=== PATIENT | female | born 1945 | race Caucasian/White ===

== ENCOUNTER → 2016-11-18 | Outpatient (CLI) | payer OTHER ==
[2016-11-18 17:28] LABS: ALT/SGPT 29 U/L (12-78); BLOOD UREA NITROGEN 17 mg/dl (7-18); BUN/CREATININE RATIO 19.5 (10-20); CALCIUM 8.3 mg/dl (8.5-10.1); CARBON DIOXIDE 26 mmol/L (21-32); CHLORIDE 98 mmol/L (98-107); CHOLESTEROL 93 mg/dl (0-200); CREATININE 0.85 mg/dl (0.60-1.20); GLUCOSE 89 mg/dl (70-99); POTASSIUM 3.5 mmol/L (3.5-5.1); SODIUM 133 mmol/L (136-145); TRIGLYCERIDES 91 mg/dl (0-150); VERY LOW DENSITY LIPOPROT CALC 18 mg/dl
[2016-11-18 17:34] LABS: BASO % 0.3 %; BASO ABS # 0.02 K/uL (0-0.2); COMPLETE YES; EOS % 0.4 %; HEMATOCRIT 37.9 % (37-47); IG% 0.3 %; LYMPH % 9.5 %; LYMPH ABS # 0.65 K/uL (1.2-3.4); MEAN CELL VOLUME 79.1 fL (80-100); MEAN CORPUSCULAR HEMOGLOBIN 27.6 pg (25-34); MEAN CORPUSCULAR HGB CONC 34.8 g/dl (32-36); MEAN PLATELET VOLUME 10.6 fL (7.4-10.4); MONO % 14.9 %; NEUT % 74.6 %; PLATELET COUNT 231 K/uL (130-400); RED BLOOD COUNT 4.79 M/uL (4.2-5.4); WHITE BLOOD COUNT 6.84 K/uL (4.8-10.8)
[2016-11-18 17:38] LABS: ALB/GLOB RATIO 0.8 (0.9-2); ALKALINE PHOSPHATASE 76 U/L (45-117); AST/SGOT 26 U/L (15-37); CHOLESTEROL/HDL RATIO 1.9; HDL CHOLESTEROL 48 mg/dl; LDL CHOLESTEROL CALCULATED 27 mg/dl; THYROID STIMULATING HORMONE 0.684 uIu/ml (0.300-4.500)
[2016-11-19 06:30] LABS: ESTIMATED AVERAGE GLUCOSE 126 mg/dl; HA1C FLAG Normal (Normal)
== END | disposition home or self-care (01) ==
LOC: C.LABBFT 16:39
PROVIDERS: ATTEND Internal Medicine
DX: E78.00 Pure hypercholesterolemia, unspecified (principal); I35.0 Nonrheumatic aortic (valve) stenosis; R73.01 Impaired fasting glucose; E55.9 Vitamin D deficiency, unspecified

== ENCOUNTER → 2016-11-20 | Outpatient (CLI) | payer OTHER ==
[2016-11-20 17:52] LABS: URINE APPEARANCE CLEAR (CLEAR); URINE BILIRUBIN NEG (NEG); URINE COLOR YELLOW; URINE NITRITE NEG (NEG); URINE PH 7.5 (4.5-7.5); URINE SPECIFIC GRAVITY 1.005 (1.000-1.030); UROBILINOGEN NEG (NEG); ZZUR CULT IF INDIC CLEAN CATCH NO
[2016-11-20 17:54] LABS: MANUAL MICROSCOPIC REQUIRED? NO; REVIEW REQ? NO
== END | disposition home or self-care (01) ==
LOC: C.LABSPEC 17:24
PROVIDERS: ATTEND Internal Medicine
DX: I35.0 Nonrheumatic aortic (valve) stenosis (principal); E78.00 Pure hypercholesterolemia, unspecified; R73.01 Impaired fasting glucose; E55.9 Vitamin D deficiency, unspecified

== ENCOUNTER → 2016-11-28 | Outpatient (CLI) | payer OTHER ==
--- NOTE | 2016-11-28 10:20 | DIAGNOSTIC IMAGING REPORT ---
CHEST 2 VIEWS ROUTINE CLINICAL HISTORY: J45.901 Asthma [id number] COMPARISON STUDY: No previous studies for comparison. FINDINGS: The bones soft tissues and hemidiaphragms are normal. The cardiomediastinal silhouette is normal. The lungs are clear. The pulmonary vasculature is normal. IMPRESSION: Negative chest. Electronically signed by: Narendra Chaudhari M.D. 11/28/2016 10:19 AM Dictated Date/Time: 11/28/2016 10:19 AM
== END | disposition home or self-care (01) ==
LOC: C.RAD1850 09:59
PROVIDERS: ATTEND Internal Medicine Pulmonary Disease
DX: J45.901 Unspecified asthma with (acute) exacerbation (principal)

== ENCOUNTER → 2016-12-25 | Outpatient (CLI) | payer OTHER ==
[2016-12-25 17:32] LABS: BLOOD UREA NITROGEN 14 mg/dl (7-18); BUN/CREATININE RATIO 16.4 (10-20); CALCIUM 9.3 mg/dl (8.5-10.1); CARBON DIOXIDE 30 mmol/L (21-32); CHLORIDE 108 mmol/L (98-107); CREATININE 0.85 mg/dl (0.60-1.20); GLUCOSE 96 mg/dl (70-99); POTASSIUM 3.6 mmol/L (3.5-5.1); SODIUM 142 mmol/L (136-145)
[2016-12-25 18:07] LABS: LYME DISEASE AB IGG NEG (NEG)
[2016-12-25 18:08] LABS: LYME DISEASE AB IGM NEG (NEG)
== END | disposition home or self-care (01) ==
LOC: C.LABBFT 12:28
PROVIDERS: ATTEND Physician Assistant Medical
DX: E87.1 Hypo-osmolality and hyponatremia (principal); R53.83 Other fatigue

== ENCOUNTER → 2017-02-27 | Outpatient (CLI) | payer OTHER ==
--- NOTE | 2017-02-28 07:07 | PAP/PSG TECHNICIAN REPORT ---
[facility] X Ray Service Technician Polysomnogram Report Study name: None Report date: 02/28/2017 Study date: 02/27/2017 Referring Physician: LEEANNE CANTRELL M.D. Name: DEEPAK RODRIGUES Interpreting Physician: Josue Bonds M.D. Date of : 1945 X Ray Service Technician: Sofia Calhoun, PSGT. Sex: Female Age: 71 StudyType: PSG Weight: 187 lbs Height: 71 years, Height 5' 7.5" Neck Circum:14 inches BMI: 28.85 Medications: SEE LIST OF 11 MEDICATIONS IN CHART. Patient History 71 YR. OLD FEMALE IN ROOM 5, PRESENTS TO THE SLEEP LAB FOR THE FOLLOWING SLEEP DISORDERS.FATIFUE, SNORING AND INSOMNIA. NECK= 14 INCHES. Pt. states that she doesn't go to bed until 3 or 4 am. Parameters Monitored NPSG: E1-M2, E2-M1, Fp1-M2, Fp2-M1, F3-M2, F4-M2, F4-M1, C3-M2, C4-M2, C4-M1, O1-M2, O2-M2, O2-M1, T3-M2, T4-M1, P3-M2, P4-M1, CHIN1, CHIN2, HR, EKG, Legs, PFLOW, SNOR, FLOW, CFLOW, Tidal Volume, THOR, ABDO, SpO2, PLTH, CPRESS, ETCO2 Wave, ETCO2, pH Sleep Architecture Sleep Stages Time at Lights Off 9:29:19 PM STAGES Time (min.) TST (%) Time at Lights On 5:57:19 AM Wake 188.5 -- Total Recording Time (TRT) 509.00 min. N1 17.5 5 Total Sleep Period (TSP) 435.0 min. N2 208.0 65 Total Sleep Time (TST) 319.0min. N3 0.0 0 Awake Time 189.0 min. REM 93.5 29 Wake after Sleep Onset 116.0 min. Sleep Efficiency (SE) 63 % Sleep Onset Latency (MARK) 73.0 min. Number of Stage 1 Shifts None Awakenings 8 Stage Changes 32 Number of REM periods 3 REM 93.5 29 REM Latency 131.0 min. NREM 225.5 71 Body Position Analysis Supine Right Left Side Prone Vertical Total Sleep Time (min.) 172.1 101.1 140.3 241.39 0.0 0.6 Total Sleep Time (%) 24% 32% 44% 76 0% N/A% Total Sleep Time REM (min.) 16.4 39.5 37.6 None 0.0 0.0 Total Sleep Time NREM (min.) 61.2 61.6 102.7 None 0.0 0.0 Intermittent Wake (min.) 94.5 23.9 69.6 None 0.0 0.6 Total Sleep Period (%) 34% None None None None None Arousals Myoclonus (PLM) * Events Count Index Events Count Index Spontaneous 110 21 Events Awake (PLMW) 5 1.6 Respiratory 31 5.8 Events Asleep w/ Arousal (PLMA) 39 7.3 PLM 39 7 Events Asleep w/o Arousal (PLMS) 192 36.1 Snoring 20 4 Total Asleep 231 43.4 Total 200 38 Total 236 28 Respiratory Analysis * CA OA MA CH H RERA Total Count 0 6 0 0 96 2 102 Index 0.0 1.1 0.0 0 18.1 0 19.6 Mean Duration 0.0 26.7 0.0 0.00 20.0 11.5 20.3 Longest Duration 0.0 44.2 0.0 0.00 0.0 12.2 48.0 Respiratory Event Summary Total Supine ~Supine Right Left Prone REM NREM Apneas Count 6 0 6 0 6 N/A 3 3 Index 1.1 0 1 0.0 2.6 N/A 2 1 Hypopneas (4% Desat) Count 96 27 69 17 52 N/A 33 63 Index 18.1 20.9 17 10.1 22.2 N/A 21.2 16.8 Apneas & All Hypopneas Count 102 27 75 17 58 N/A 36 66 Index 19.2 21 19 10 25 N/A 23.1 17.6 Respiratory Events (Noise Abatement Engineer+All Hyp+RERA) Count 102 28 76 18 58 N/A 36 66 Index 19.6 22 19 10.7 24.8 N/A 23.1 18.1 Respiratory Related Arousal Count 31 28 28 4 24 N/A 7 24 Index 5.8 2 7 2 10 N/A 4 6 Snoring Analysis Supine Right Left Prone REM NREM Total Snore duration 15.5 min Snores count 95 451 209 N/A 118 637 755 Snore mean duration 1.2 Sec Snores index 73 268 89 N/A 75.7 169.5 142.0 TST with snoring (%) 4.9% SpO2 Analysis Total REM NREM Awake <50% 0.0 min. 0.0 min. 0.0 min. 0.0 min. 51 - 60% 0.0 min. 0.0 min. 0.0 min. 0.0 min. 61 - 70% 0.0 min. 0.0 min. 0.0 min. 0.0 min. 71 - 80% 1.1 min. 0.6 min. 0.5 min. 0.0 min. 81 - 90% 101.6 min. 19.9 min. 51.6 min. 30.2 min. 91 - 100% 398.3 min. 73.0 min. 173.1 min. 152.1 min. Average 92 92 92 92 Minimum SpO2 77 77 77 88 Desaturation Event Index 11.7 18.6 18.6 0.0 # Desat. Events below 89% 43 21 22 N/A Time(%) with Saturation below 89% 4.7 2.5 1.9 0.2 Time(min.) with Saturation below 89% 23.4 12.8 9.8 0.9 Heart Rate Analysis End Tidal CO2 Analysis Min (bpm) Max (bpm) Average (bpm) TSP (mins) % of TSP Awake 57 127 75 Above 55 mmHg 0.0 0.0 NREM 58 94 71 50-55 mmHg 0.0 0.0 REM 57 87 70 45-50 mmHg 319.0 100.0 Overall 57 94 71 40-45 mmHg 0.0 0.0 35-40 mmHg 0.0 0.0 30-35 mmHg 0.0 0.0 Average ETCO2 0.0 Supplemental O2 Values Minimum O2 level: None Value Start Time End Time X Ray Service Technician Comments PSG Study MS. Mckeon slept in the right, left, and supine positions. No cardiac arrhythmia. PLM's noted. No bruxism noted. Snoring was noted and scored as a 2 on a scale of 1 through 5. (0=no snoring, 5=snoring loud enough to be heard through a closed door or down the [address] way) Ms. Mckeon awoke to use the restroom 2 times during the night. Ms. Mckeon stated, I slept better here than I have in a long time. The final report will be interpreted and signed by a sleep physician. The completed physician report will then be placed in the patient medical record. Pt. had a long onset to sleep, once asleep she did sleep well. She did display a lot of leg movements, along with some respiratory events. Mild snoring was displayed. Therapy (cm H2O) 0 TIB (min.) 507.5 TST (min.) 319.0 Sleep Onset (min.) 73.0 REM Onset From Sleep (min.) 131.0 Sleep Efficiency % 63 Wakefulness (%) 37 Wakefulness (min.) 189.0 NREM 1 (%) 5 NREM 1 (min.) 17.5 NREM 2 (%) 65 NREM 2 (min.) 208.0 NREM 3 (%) 0 NREM 3 (min.) 0.0 REM (%) 29 REM (min.) 93.5 # Arousals 200 Arousal Index 38 # Snore 755 Snore Index 142.0 AHI 19.2 AHI Supine 21 AHI Non-Supine 19 NREM AHI 17.6 REM AHI 23.1 RDI 19.6 # Obstructive Apnea 6 # Central Apnea 0 # Mixed Apnea 0 # Hypopneas 96 RERAs 2 Total Respiratory Events 105 Time Below SpO2 89% (min.) 22.5 Mean NREM SpO2 (%) 92 Mean REM SpO2 (%) 92 Mean Sleep SpO2 (%) 92 Min NREM SpO2 (%) 77 Min REM SpO2 (%) 77 Position Supine (min.) 172.1 Position Non-supine (min.) 241.4 LM Index Sleep 43.4 LM Index NREM 51.6 LM Index REM 23.7 Mean Heart Rate (bpm) 71 Min Heart Rate (bpm) 57
--- NOTE | 2017-02-28 14:49 | POLYSOMNOGRAPH REPORT ---
CLINICAL DATA: A 71-year-old female with BMI of 28.5 referred by myself and Dr. Aranda for symptoms of snoring, fatigue, and fragmented sleep architecture. The patient normally does not go to sleep until 3-4 a.m. SLEEP ARCHITECTURE: Total sleep period was 435 minutes. Total sleep time was 390 minutes, divided between 225.5 minutes of non-REM sleep and 93.5 minutes of REM sleep. Sleep onset latency was delayed at 73 minutes. REM latency was mildly delayed at 131 minutes. Sleep efficiency reduced to 63%. Wake after sleep onset was 116 minutes. Sleep consisted of stage N1 5%, N2 65%, REM 29%. AROUSAL DATA: 200 arousals were recorded for an index of 38 per hour. 110 were spontaneous. 39 were due to PLMs. PLM DATA: 231 limb movements during sleep were noted for an index of 43.4 per hour with arousal index of 7.3 per hour. RESPIRATORY DATA: Moderate sleep apnea was documented. The AHI was 19.2. The RDI was 19.6. There were 6 obstructive apneic episodes, the longest duration of which was 44.2 seconds. There were 96 hypopneic episodes. The mean duration of hypopnea was 20 seconds. There were 2 RERAs, the longest RERA was 12.2 seconds. OXIMETRY DATA: Nocturnal hypoxemia was seen. Oxygen alton of 77% during REM. The mean saturation was 92%. Time below 89% was 23 minutes. EKG: Heart rates ranged from 58-94 beats per minute. No arrhythmias were noted. INSURANCE LOSS ASSESSOR'S COMMENTS: The patient slept in the right, left, and supine positions. Snoring was mild to moderate, rated 2 on a scale of 1-5. IMPRESSION: Moderate sleep apnea/hypopnea with nocturnal hypoxemia. RECOMMENDATIONS: The patient may benefit from a repeat sleep study with CPAP. Clinical correlation is needed. [facility]CHIATRIC HOSPITALDebbie
== END | disposition home or self-care (01) ==
LOC: C.NEUR 20:00
PROVIDERS: ATTEND Internal Medicine Pulmonary Disease
DX: R53.83 Other fatigue (principal); G47.00 Insomnia, unspecified; R06.83 Snoring; G47.30 Sleep apnea, unspecified; R09.02 Hypoxemia

== ENCOUNTER → 2017-03-12 | Outpatient (CLI) | payer OTHER ==
--- NOTE | 2017-03-13 07:56 | PAP/PSG TECHNICIAN REPORT ---
[facility] Set Up And Lay Out Inspector Polysomnogram Report Study name: None Report date: 03/13/2017 Study date: 03/12/2017 Referring Physician: LEEANNE CANTRELL M.D. Name: DEEPAK RODRIGUES Interpreting Physician: Josue Bonds M.D. Date of : 1945 Set Up And Lay Out Inspector: Sofia Calhoun, PSGT. Sex: Female Age: 71 StudyType: PSG Weight: 186 lbs Height: 71 years, Height 5' 8" Neck Circum:14 inches BMI: 28.28 Medications: ADVAIR, ALEVE, ASPIRIN, CLOTRIMAZOLE-BETAMETHASONE, KELP, MULTIVITAMINS, NASANEX, RANTIDINE, ROVASTATIN, TRAMADOL HCI, VENTOLIN HFA, VITAMIN D-3. Patient History 71 yr. old female here for a c-pap titration sleep study. pt. had a baseline study done on 02/25/17, she had an 19.2 ahi. neck = 14 inches Parameters Monitored NPSG: E1-M2, E2-M1, Fp1-M2, Fp2-M1, F3-M2, F4-M2, F4-M1, C3-M2, C4-M2, C4-M1, O1-M2, O2-M2, O2-M1, T3-M2, T4-M1, P3-M2, P4-M1, CHIN1, CHIN2, HR, EKG, Legs, PFLOW, SNOR, FLOW, CFLOW, Tidal Volume, THOR, ABDO, SpO2, PLTH, CPRESS, ETCO2 Wave, ETCO2, pH Sleep Architecture Sleep Stages Time at Lights Off 8:34:08 PM STAGES Time (min.) TST (%) Time at Lights On 5:31:08 AM Wake 81.0 -- Total Recording Time (TRT) 538.00 min. N1 25.5 6 Total Sleep Period (TSP) 518.0 min. N2 299.5 66 Total Sleep Time (TST) 456.0min. N3 0.0 0 Awake Time 81.0 min. REM 131.0 29 Wake after Sleep Onset 62.0 min. Sleep Efficiency (SE) 85 % Sleep Onset Latency (MARK) 19.0 min. Number of Stage 1 Shifts None Awakenings 11 Stage Changes 48 Number of REM periods 5 REM 131.0 29 REM Latency 107.5 min. NREM 325.0 71 Body Position Analysis Supine Right Left Side Prone Vertical Total Sleep Time (min.) 412.1 59.3 46.1 105.44 0.0 0.2 Total Sleep Time (%) 77% 13% 10% 23 0% N/A% Total Sleep Time REM (min.) 83.2 47.8 0.0 None 0.0 0.0 Total Sleep Time NREM (min.) 267.4 11.5 46.1 None 0.0 0.0 Intermittent Wake (min.) 61.6 3.9 15.4 None 0.0 0.2 Total Sleep Period (%) 76% None None None None None Arousals Myoclonus (PLM) * Events Count Index Events Count Index Spontaneous 81 11 Events Awake (PLMW) 0 0.0 Respiratory 2 0.3 Events Asleep w/ Arousal (PLMA) 40 5.3 PLM 39 5 Events Asleep w/o Arousal (PLMS) 183 24.1 Snoring 4 1 Total Asleep 223 29.3 Total 125 16 Total 223 25 Respiratory Analysis * CA OA MA CH H RERA Total Count 0 0 0 0 8 0 8 Index 0.0 0.0 0.0 0 1.1 0 1.1 Mean Duration 0.0 0.0 0.0 0.00 18.2 0.0 18.2 Longest Duration 0.0 0.0 0.0 0.00 0.0 0.0 27.4 Respiratory Event Summary Total Supine ~Supine Right Left Prone REM NREM Apneas Count 0 0 0 0 0 N/A 0 0 Index 0.0 0 0 0.0 0.0 N/A 0 0 Hypopneas (4% Desat) Count 8 8 0 0 0 N/A 2 6 Index 1.1 1.4 0 0.0 0.0 N/A 0.9 1.1 Apneas & All Hypopneas Count 8 8 0 0 0 N/A 2 6 Index 1.1 1 0 0 0 N/A 0.9 1.1 Respiratory Events (Bariatric Surgeon+All Hyp+RERA) Count 8 8 0 0 0 N/A 2 6 Index 1.1 1 0 0.0 0.0 N/A 0.9 1.1 Respiratory Related Arousal Count 2 8 0 0 0 N/A 0 2 Index 0.3 0 0 0 0 N/A 0 0 Snoring Analysis Supine Right Left Prone REM NREM Total Snore duration 6.9 min Snores count 92 93 19 N/A 109 95 204 Snore mean duration 2.0 Sec Snores index 16 94 25 N/A 49.9 17.5 26.8 TST with snoring (%) 1.5% Desaturation Event Summary: Minimum %SpO2 Event Count Mean/Min/Max Duration(sec.) Desaturation Index % Time In Bed > 90 18 24.9 / 7.3 / 56.8 2.2 94.4 86 - 90 0 N/A 0.0 5.6 81 - 85 0 N/A 0.0 0.0 76 - 80 0 N/A 0.0 0.0 71 - 75 0 N/A 0.0 0.0 66 - 70 0 N/A 0.0 0.0 61 - 65 0 N/A 0.0 0.0 56 - 60 0 N/A 0.0 0.0 51 - 55 0 N/A 0.0 0.0 < 50 0 N/A 0.0 0.0 Total REM NREM Awake <50% 0.0 min. 0.0 min. 0.0 min. 0.0 min. 51 - 60% 0.0 min. 0.0 min. 0.0 min. 0.0 min. 61 - 70% 0.0 min. 0.0 min. 0.0 min. 0.0 min. 71 - 80% 0.0 min. 0.0 min. 0.0 min. 0.0 min. 81 - 90% 29.7 min. 5.2 min. 16.9 min. 7.5 min. 91 - 100% 497.9 min. 125.7 min. 307.9 min. 64.2 min. Average 93 93 93 93 Minimum SpO2 87 89 88 87 Desaturation Event Index 2.0 1.8 2.6 0.0 # Desat. Events below 89% 0 N/A N/A 0 Time(%) with Saturation below 89% 0.1 0.0 0.1 0.1 Time(min.) with Saturation below 89% 0.8 0.0 0.3 0.5 Heart Rate Analysis End Tidal CO2 Analysis Min (bpm) Max (bpm) Average (bpm) TSP (mins) % of TSP Awake 38 127 72 Above 55 mmHg 0.0 0.0 NREM 55 84 68 50-55 mmHg 0.0 0.0 REM 57 85 69 45-50 mmHg 456.0 100.0 Overall 55 85 68 40-45 mmHg 0.0 0.0 35-40 mmHg 0.0 0.0 30-35 mmHg 0.0 0.0 Average ETCO2 0.0 Supplemental O2 Values Minimum O2 level: None Value Start Time End Time Set Up And Lay Out Inspector Comments PAP Study: MS. Chirinos slept in the right, left, and supine positions. Cardiac arrhythmia or PLM's noted. No bruxism noted. CPAP was initiated at +4 CMH2O and up-titrated to an optimal level of +6 CMH2O, which nearly eliminated all respiratory events and snoring. A Small F&P ESON, was used during titration Ms. Chirinos awoke to use the restroom one time during the night. Ms. Chirinos stated, I did sleep than I do when I am in my own bed. The final report will be interpreted and signed by a sleep physician. The completed physician report will then be placed in the patient medical record. Therapy Event: Therapy (cm H20) 0 4 5 6 Total Time at Pressure (min.) 0.3 143.8 293.9 98.9 TST at Pressure (min.) 0.0 107.6 253.9 94.4 # Periods 1 1 1 1 Sleep Onset (min.) N/A 18.7 0.0 0.0 REM Onset (min.) N/A 126.2 116.9 70.4 Sleep Efficiency % 0 74 86 95 Wakefulness (%) 100.0 25.2 13.6 4.5 Wakefulness (min.) 0.3 36.2 40.0 4.5 NREM 1 (%) 0.0 5.2 4.4 5.1 NREM 1 (min.) 0.0 7.5 13.0 5.0 NREM 2 (%) 0.0 61.6 51.0 61.6 NREM 2 (min.) 0.0 88.6 149.9 60.9 NREM 3 (%) 0.0 0.0 0.0 0.0 NREM 3 (min.) 0.0 0.0 0.0 0.0 REM (%) 0.0 8.0 31.0 28.8 REM (min.) 0.0 11.5 91.0 28.5 # Arousals N/A 28 91 6 Arousal Index N/A 15.6 21.5 3.8 # Snore N/A 15 161 28 Snore Index N/A 8.4 38.0 17.8 AHI N/A 1.1 0.9 1.3 AHI Supine N/A 1.5 1.4 1.3 AHI Non-Supine N/A 0.0 0.0 N/A NREM AHI N/A 0.0 1.5 1.8 REM AHI N/A 10.4 0.0 0.0 RDI N/A 1.1 0.9 1.3 # Obstructive N/A 0 0 0 # Central Ap N/A 0 0 0 # Mixed N/A 0 0 0 # Hypopneas N/A 2 4 2 RERAS N/A 0 0 0 Total Respiratory Events N/A 2 4 2 Time Below SpO2 89.00% (min.) 0.0 0.3 0.0 0.0 Mean NREM SpO2 (%) N/A 92 93 94 Mean REM SpO2 (%) N/A 93 92 94 Mean Sleep SpO2 (%) N/A 92 93 94 Min NREM SpO2 (%) N/A 88 89 91 Min REM SpO2 (%) N/A 89 89 91 Position Supine (min.) 0.0 78.8 177.3 94.4 Position Non-supine (min.) 0.0 28.8 76.6 0.0 LM Index Sleep N/A 55.2 26.0 8.9 LM Index NREM N/A 60.5 35.0 9.1 LM Index REM N/A 10.4 9.9 8.4 Mean Heart Rate (bpm) N/A 73 68 62 Min Heart Rate (bpm) N/A 64 55 55
--- NOTE | 2017-04-02 14:01 | Sleep Study ---
Sleep Study Report Date of Service: March 12, 2017 Sleep Study Report Clinical data: The patient is a 71-year-old female with a BMI of 28.3 referred for CPAP titration study. Her baseline PSG showed moderate sleep apnea with an AHI of 19.2. Sleep architecture: Total sleep period was 518 minutes. Total sleep time was 456 minutes divided between 325 minutes of non-REM sleep and 132 minutes of REM sleep. Sleep onset latency was 19 minutes. REM latency 207.5 minutes. Sleep efficiency was 85 percent. Wake after sleep onset was 62 minutes. Sleep consisted of stage N1 6 percent, stage N2 66 percent, and REM 29 percent. Arousal data: 125 arousals were recorded for an index of 16 per hour. Eighty- one were spontaneous arousals. Thirty one were due to PLMS. PLM data: 223 limb movements during sleep were noted for an index of 29.3 per hour with an arousal index of 5.3 per hour Respiratory data: The AHI was 1.1. There were 8 hypopneas with a mean duration of 18.2 seconds. Oximetry data: No significant hypoxemia was seen. Oxygen alton was 88 percent during non-REM sleep. Mean saturation was 93 percent. EKG: Heart rates ranged from 55 to 85 beats per minute. Treatment summary: The patient slept in the right, left, and supine positions. She used a small F&P Eson mask. She was titrated up to 6 centimeters water pressure. At her final pressure setting, she slept for 94.4 minutes with an AHI of 1.3. Impression: Moderate obstructive sleep apnea corrected with CPAP 6 centimeters water pressure. Recommendation: The patient will be started on the above-noted treatment regimen and seen back in follow-up within 90 days to document efficacy and compliance. Copies To 1: Kai Aranda M.D.; Samara Cote PA-C
--- NOTE | 2017-04-10 10:26 | POLYSOMNOGRAPH REPORT ---
CLINICAL DATA: A 71-year-old female with BMI of 28.[address] Aranda and myself for a CPAP titration study. She has moderate sleep apnea documented on a sleep study on 02/25/2017 at night with an AHI of 19.2. SLEEP ARCHITECTURE: Total sleep period was 518 minutes. Total sleep time was 456 minutes, divided between 325 minutes of non-REM sleep and 131 minutes of REM sleep. Sleep onset latency was 19 minutes. REM latency was 107.5 minutes. Sleep efficiency was 85%. Awake after sleep onset was 62 minutes. Sleep consisted of stage N1 6%, N2 66%, REM 29%. AROUSAL DATA: 125 arousals were recorded for an index of 16 per hour. PERIODIC LIMB MOVEMENTS DATA: 223 limb movements during sleep were noted for an index of 29.3 per hour with arousal index of 5.3 per hour. RESPIRATORY DATA: AHI was 1.1. There were 8 hypopneic episodes, the mean duration of which was 18.2 seconds. OXIMETRY DATA: No hypoxemia was seen. Oxygen alton was 88%. Mean saturation was 93%. ELECTROCARDIOGRAM: Heart rate ranged from 55-88 beats per minute. No arrhythmias were noted. AREA PLANT MANAGER'S COMMENTS: The patient slept in the right, left, and supine positions. The patient used a small F & P Eson mask. She was titrated up to a final pressure setting of 6 cm of water pressure. At that pressure setting, patient slept for 94 minutes with an AHI of 1.3. IMPRESSION: Moderate sleep apnea corrected with CPAP 6 cm of water pressure, small F & P Eson mask. RECOMMENDATIONS: The patient will be seen back in followup and started on CPAP.
== END | disposition home or self-care (01) ==
LOC: C.NEUR 20:00
PROVIDERS: ATTEND Physician Assistant Medical
DX: G47.33 Obstructive sleep apnea (adult) (pediatric) (principal); I35.0 Nonrheumatic aortic (valve) stenosis; I65.29 Occlusion and stenosis of unspecified carotid artery; E55.9 Vitamin D deficiency, unspecified; J44.9 Chronic obstructive pulmonary disease, unspecified

== ENCOUNTER → 2017-03-18 | Outpatient (CLI) | payer OTHER ==
[~2017-03-18] VITALS: Ht 172.7 cm; Wt 85.0 kg
[2017-03-18 13:57] VITALS: BP 99/69; PULSE 96; Ht 172.7 cm; Wt 85.0 kg
== END | disposition home or self-care (01) ==
LOC: C.NEUR 13:35
PROVIDERS: ATTEND Physician Assistant Medical
DX: G47.33 Obstructive sleep apnea (adult) (pediatric) (principal); I35.0 Nonrheumatic aortic (valve) stenosis; I65.29 Occlusion and stenosis of unspecified carotid artery

== ENCOUNTER → 2017-05-30 | Outpatient (CLI) | payer OTHER ==
[2017-05-30 16:48] LABS: URINE APPEARANCE CLEAR (CLEAR); URINE BILIRUBIN NEG (NEG); URINE COLOR YELLOW; URINE EPITHELIAL CELL AUTO >30 /lpf (0-5); URINE NITRITE NEG (NEG); URINE SPECIFIC GRAVITY 1.027 (1.000-1.030); UROBILINOGEN NEG (NEG); ZZUR CULT IF INDIC CLEAN CATCH NO
[2017-05-30 16:55] LABS: BLOOD UREA NITROGEN 17 mg/dl (7-18); CALCIUM 8.6 mg/dl (8.5-10.1); CARBON DIOXIDE 28 mmol/L (21-32); CHLORIDE 106 mmol/L (98-107); CREATININE 0.72 mg/dl (0.60-1.20); GLUCOSE 89 mg/dl (70-99); POTASSIUM 3.9 mmol/L (3.5-5.1); SODIUM 139 mmol/L (136-145)
[2017-05-30 16:56] LABS: MANUAL MICROSCOPIC REQUIRED? NO; REVIEW REQ? YES
[2017-05-31 08:43] LABS: ESTIMATED AVERAGE GLUCOSE 117 mg/dl; HA1C FLAG Normal (Normal)
== END | disposition home or self-care (01) ==
LOC: C.LABBFT 11:43
PROVIDERS: ATTEND Internal Medicine
DX: R73.01 Impaired fasting glucose (principal); E55.9 Vitamin D deficiency, unspecified

== ENCOUNTER → 2017-06-10 | Outpatient (CLI) | payer OTHER ==
[~2017-06-10] VITALS: Ht 172.7 cm; Wt 87.8 kg
[2017-06-10 15:24] VITALS: BP 120/78; PULSE 76; Ht 172.7 cm; Wt 87.8 kg
== END | disposition home or self-care (01) ==
LOC: C.NEUR 14:50
PROVIDERS: ATTEND Internal Medicine Pulmonary Disease
DX: G47.33 Obstructive sleep apnea (adult) (pediatric) (principal); J44.9 Chronic obstructive pulmonary disease, unspecified; E78.00 Pure hypercholesterolemia, unspecified; Z90.710 Acquired absence of both cervix and uterus; Z90.89 Acquired absence of other organs; Z83.6 Family history of other diseases of the respiratory system; Z83.3 Family history of diabetes mellitus; Z82.49 Family history of ischemic heart disease and other diseases of the circulatory system; Z80.42 Family history of malignant neoplasm of prostate; Z80.3 Family history of malignant neoplasm of breast

== ENCOUNTER → 2017-12-16 | Outpatient (CLI) | payer OTHER ==
[2017-12-16 16:31] LABS: BASO % 3.1 %; BASO ABS # 0.19 K/uL (0-0.2); EOS % 9.9 %; EOS ABS # 0.61 K/uL (0-0.5); HEMATOCRIT 37.2 % (37-47); HEMOGLOBIN 12.1 g/dL (12.0-16.0); IG# 0.01 K/uL (0.00-0.02); LYMPH % 23.1 %; LYMPH ABS # 1.42 K/uL (1.2-3.4); MEAN CELL VOLUME 81.4 fL (80-100); MEAN CORPUSCULAR HEMOGLOBIN 26.5 pg (25-34); MEAN CORPUSCULAR HGB CONC 32.5 g/dl (32-36); MEAN PLATELET VOLUME 9.9 fL (7.4-10.4); MONO % 9.6 %; MONO ABS # 0.59 K/uL (0.11-0.59); NEUT % 54.1 %; NEUT ABS # 3.34 K/uL (1.4-6.5); PLATELET COUNT 352 K/uL (130-400); RED CELL DISTRIBUTION WIDTH CV 15.3 % (11.5-14.5); RED CELL DISTRIBUTION WIDTH SD 45.3 fL (36.4-46.3); WHITE BLOOD COUNT 6.16 K/uL (4.8-10.8)
[2017-12-16 16:46] LABS: ALBUMIN 3.4 gm/dl (3.4-5.0); ALT/SGPT 17 U/L (12-78); AST/SGOT 18 U/L (15-37); BLOOD UREA NITROGEN 12 mg/dl (7-18); CALCIUM 9.2 mg/dl (8.5-10.1); CARBON DIOXIDE 28 mmol/L (21-32); CREATININE 0.78 mg/dl (0.60-1.20); GLUCOSE 109 mg/dl (70-99); POTASSIUM 4.8 mmol/L (3.5-5.1); SODIUM 139 mmol/L (136-145)
[2017-12-16 16:49] LABS: ALKALINE PHOSPHATASE 87 U/L (45-117); CHOLESTEROL 133 mg/dl (0-200); LDL CHOLESTEROL CALCULATED 45 mg/dl; TOTAL PROTEIN 7.4 gm/dl (6.4-8.2)
[2017-12-17 06:36] LABS: HEMOGLOBIN A1C 5.9 % (4.5-5.6)
== END | disposition home or self-care (01) ==
LOC: C.LABBFT 11:34
PROVIDERS: ATTEND Internal Medicine
DX: I35.0 Nonrheumatic aortic (valve) stenosis (principal); R73.01 Impaired fasting glucose; E78.00 Pure hypercholesterolemia, unspecified; E55.9 Vitamin D deficiency, unspecified

== ENCOUNTER → 2017-12-17 | Outpatient (CLI) | payer OTHER ==
[2017-12-20 11:35] LABS: ANA SCREEN TC 249X NEGATIVE (NEGATIVE)
== END | disposition home or self-care (01) ==
LOC: C.LABBFT 15:32
PROVIDERS: ATTEND Internal Medicine
DX: Z00.00 Encounter for general adult medical examination without abnormal findings (principal); M25.50 Pain in unspecified joint; E55.9 Vitamin D deficiency, unspecified

== ENCOUNTER → 2017-12-31 | Outpatient (CLI) | payer OTHER ==
--- NOTE | 2017-12-31 10:34 | DIAGNOSTIC IMAGING REPORT ---
R HAND MIN 3 VIEWS ROUTINE CLINICAL HISTORY: 72 years-old Female presenting with R76.8 Rheumatoid factor [id number] Left shoulder painM25.56. TECHNIQUE: Frontal, oblique, and lateral views the right hand were obtained. COMPARISON: None. FINDINGS: No acute fracture or malalignment. No advanced degenerative change. No radiographic soft tissue abnormality. IMPRESSION: No acute osseous injury. Electronically signed by: Kwasi Taylor M.D. 12/31/2017 10:33 AM Dictated Date/Time: 12/31/2017 10:32 AM
--- NOTE | 2017-12-31 10:35 | DIAGNOSTIC IMAGING REPORT ---
LEFT KNEE 2 VIEWS CLINICAL HISTORY: Rheumatoid arthritis. FINDINGS: AP and lateral views of the left knee are obtained. No prior studies are available for comparison at the time of dictation. The skeletal structures are osteopenic. No fracture is seen. There is advanced degenerative narrowing at the patellofemoral articulation with near complete loss of the joint space and bony sclerosis. Mild to moderate joint space narrowing is seen in the medial and lateral compartments. There are large marginal osteophytes as well as small patellar enthesophytes. No erosive change is identified. Mild chondrocalcinosis is seen in the medial and lateral compartment. There is no large joint effusion. The overlying soft tissues are within normal limits. IMPRESSION: 1. No acute bony abnormality is seen in the left knee. 2. Osteopenia with degenerative change and chondrocalcinosis as above. Electronically signed by: Mahendra Tamayo M.D. 12/31/2017 10:34 AM Dictated Date/Time: 12/31/2017 10:32 AM
--- NOTE | 2017-12-31 10:36 | DIAGNOSTIC IMAGING REPORT ---
RIGHT KNEE 2 VIEWS CLINICAL HISTORY: Rheumatoid arthritis. FINDINGS: AP and lateral views of the right knee are obtained. No prior studies are available for comparison at the time of dictation. The skeletal structures are osteopenic. No fracture is seen. There is advanced degenerative narrowing at the patellofemoral articulation with near complete loss of the joint space and mild sclerosis. Mild to moderate joint space narrowing is seen in the medial and lateral compartments, greatest laterally. There are large marginal osteophytes. No erosive change is identified. Bony overgrowth is noted along the medial aspect of the distal femoral metaphysis. Mild chondrocalcinosis is seen in the medial and lateral compartment. There is no large joint effusion. The overlying soft tissues are within normal limits. IMPRESSION: 1. No acute bony abnormality is seen in the right knee. 2. Osteopenia with degenerative change and chondrocalcinosis as above. Electronically signed by: Mahendra Tamayo M.D. 12/31/2017 10:35 AM Dictated Date/Time: 12/31/2017 10:34 AM
--- NOTE | 2017-12-31 10:36 | DIAGNOSTIC IMAGING REPORT ---
LEFT ANKLE 3 VIEWS HISTORY: R76.8 Rheumatoid factor [id number] Left shoulder painM25.56 COMPARISON: None. FINDINGS: There is no fracture or dislocation. Mild soft tissue swelling. Mild caudal space narrowing within the medial compartment of the ankle with small osteophytes at the medial malleolus. This is consistent with mild degenerative change. No erosions identified. Plantar heel spur. No radiopaque foreign bodies. IMPRESSION: 1. Mild soft tissue swelling within the left ankle. 2. Mild degenerative changes at the tibiotalar joint. Electronically signed by: Jim Rao M.D. 12/31/2017 10:34 AM Dictated Date/Time: 12/31/2017 10:33 AM
[2017-12-31 12:23] LABS: TRANSFERRIN 350 mg/dl (200-360)
--- NOTE | 2018-01-01 08:00 | DIAGNOSTIC IMAGING REPORT ---
LEFT HAND 3 VIEWS CLINICAL HISTORY: Arthritis. FINDINGS: 3 views of the left hand are obtained. No prior studies are available for comparison at the time of dictation. The skeletal structures are osteopenic. No fracture is seen. There is mild degenerative narrowing at the radiocarpal articulation. Osteoarthritic change is seen involving the interphalangeal joints, distal greater than proximal. 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 Minimal arthritic change is seen at the first carpal metacarpal joint. The overlying soft tissues are within normal limits. IMPRESSION: 1. No acute bony abnormality is seen in the left hand. 2. Osteopenia and arthritic change as detailed above. Electronically signed by: Mahendra Tamayo M.D. 01/01/2018 7:59 AM Dictated Date/Time: 01/01/2018 7:45 AM
== END | disposition home or self-care (01) ==
LOC: C.RAD1850 09:51
PROVIDERS: ATTEND Internal Medicine Rheumatology
DX: M25.512 Pain in left shoulder (principal); M25.569 Pain in unspecified knee; R76.8 Other specified abnormal immunological findings in serum; S93.02XA Subluxation of left ankle joint, initial encounter; X58.XXXA Exposure to other specified factors, initial encounter; M85.89 Other specified disorders of bone density and structure, multiple sites